=== PATIENT | male | born 1980 | race Caucasian/White ===

== ENCOUNTER → 2018-01-31 | Outpatient (CLI) | payer MEDICARE, OTHER ==
[~2018-01-31] MED LIST: GADOBENATE DIMEGLUMINE 1 ML IV ONE; IOPAMIDOL 300 MG/ML 15ML VIAL IT ONE
--- NOTE | 2018-01-31 15:26 | Diagnostic Imaging Report ---
PROCEDURE:FLUORO GUID ARTHRO NEEDLE PLMT COMPARISON:None. INDICATIONS:Right shoulder pain. TECHNIQUE:A joint injection was performed in the usual sterile manner after obtaining informed consent. FINDINGS: Consumer Relations Complaint Clerk images of the right shoulder were obtained. The right shoulder was prepped and draped in the usual sterile fashion. 1% lidocaine was infused into the subcutaneous tissues for local anesthesia. Utilizing direct fluoroscopic guidance, a 22 gauge spinal needle was advanced into the right glenohumeral joint. Contrast opacification of the glenohumeral joint space was confirmed with 5 cc Isovue-300. A mixture of gadolinium 0.1 mg and 10 cc of sterile saline was infused. Upon completion, the needle was removed. A sterile dressing was applied. The contrast was mobilized within the joint space utilizing passive range of motion. There no immediate complications. The patient tolerated the procedure well. The patient was transferred in stable unchanged condition to the MRI suite for further imaging with an MRI arthrogram. CONCLUSION: Successful right shoulder contrast injection utilizing fluoroscopic guidance for an MR arthrogram. Dictated by: Moisés Suazo M.D. on 01/31/2018 at 15:27 Electronically approved by: Moisés Suazo M.D. on 01/31/2018 at 15:27
--- NOTE | 2018-01-31 15:40 | Diagnostic Imaging Report ---
MRI of the right shoulder with contrast. History: Shoulder pain. Labral lesion. Pain worse with heavy lifting. Comparison: None Technique: Multiplanar multisequence MRI of the right shoulder after the administration of intra-articular gadolinium contrast material. Findings: Rotator cuff: There is mild rotator cuff tendinosis with mild articular sided fraying involving the anterior fibers of the supraspinatus and infraspinatus tendons at the humeral insertion site. No rotator cuff tear, muscle atrophy or retraction. Osseous acromion complex: There is a type II acromion with mild lateral downsloping. There is mild degenerative arthrosis at the acromioclavicular joint with undersurface spurring and narrowing of the supraspinatus tendon outlet. Glenohumeral joint: There is a nondisplaced superior labral tear extending from anterior to posterior. This is best seen on coronal series 4 image 11 through 15. The capsular structures are intact. The articular cartilage surfaces are intact. The humeral head is well-seated in the glenoid fossa. Gadolinium contrast material is seen filling the glenohumeral joint and extending into the subcoracoid space. Biceps tendon: There is intra-articular biceps tendinosis with fraying at the biceps anchor. Other findings: Negative for muscle denervation or osseous fracture. Impression: Mild rotator cuff tendinosis with mild articular sided fraying involving the anterior fibers of the supraspinatus and infraspinatus tendons at the humeral insertion site Nondisplaced superior labral tear extending from anterior to posterior Intra-articular biceps tendinosis with fraying at the biceps anchor. Signed by: Dr. Maykel Soto M.D. on 01/31/2018 3:36 PM
--- NOTE | 2018-01-31 15:43 | Diagnostic Imaging Report ---
Left knee MRI without contrast. History: Knee pain. Meniscus tear. Decreased range of motion. Pain not responding to conservative management. Comparison: None. Technique: Multiplanar multi-sequence MRI of the knee without contrast. Findings: Medial compartment: There is degeneration and free edge fraying of the medial meniscus. No meniscal tear, cartilage abnormality, or MCL tear. Lateral compartment: No meniscal tear or cartilage abnormality. The LCL complex is normal. Intercondylar notch: The ACL and PCL are intact. Patellofemoral compartment: No chondromalacia or patellar dislocation. Extensor mechanism: There is mild proximal patellar tendinosis. The quadriceps and patellar tendons are otherwise intact. Other findings: There is a joint effusion and synovitis. There is no acute fracture, subluxation or avascular necrosis. IMPRESSION: Degeneration and free edge fraying of the medial meniscus. No meniscal tear is seen. Mild proximal patellar tendinosis without tear or retraction. Signed by: Dr. Maykel Soto M.D. on 01/31/2018 3:39 PM
== END ==
LOC: DX 12:07
PROVIDERS: ATTEND Specialist
DX: S43.431A Superior glenoid labrum lesion of right shoulder, initial encounter (principal); S46.091A Other injury of muscle(s) and tendon(s) of the rotator cuff of right shoulder, initial encounter; S83.242A Other tear of medial meniscus, current injury, left knee, initial encounter
CPT/HCPCS: 23350; 73222; 73721; 77002; Q9967

== ENCOUNTER → 2018-02-23 | Day surgery (SDC) | payer MEDICARE, OTHER ==
[~2018-02-23] MED LIST changes: +BUPIVACAINE HCL 0.5% INJ 30 ML VIAL INJ ONE; +CEFAZOLIN SOD 2 GM/D5W 50ML 50 ML IV ONE; +DEXAMETHASONE SOD PHOS INJ 4 MG/ML VIAL ONE; +EPINEPHRINE HCL INJ 1 MG/ML AMP ONE; +FENTANYL CITRATE/PF 100MCG/2 ML INJ ONE; -GADOBENATE DIMEGLUMINE 1 ML IV ONE; -IOPAMIDOL 300 MG/ML 15ML VIAL IT ONE; +LIDOCAINE HCL 2% LOCAL INJ 5 ML SDV VIAL INJ ONE; +LORTAB PO; +METOCLOPRAMIDE HCL 10 MG/2ML VIAL ONE; +MIDAZOLAM HCL 2 MG/2 ML VIAL ONE; +ONDANSETRON HCL INJ 2 MG/ML VIAL ONE; +PROPOFOL IV EMULSION 10 MG/ML 20 ML VIAL ONE; +ROCURONIUM BROMIDE 10 MG/ML 5ML VIAL ONE; +SEVOFLURANE INHAL SOLN 250 ML PEN BTL ONE
--- OUTSIDE RECORDS SUMMARY | 2018-02-23 08:27 | XMS REPORT ---
Author Author [facility] Address Unknown Phone Unavailable Care Team Providers Care Refinery Operator Alkylation Name Role Phone PRICILA BROUSSARD Unavailable Unavailable Problems This patient has no known problems. Allergies, Adverse Reactions, Alerts This patient has no known allergies or adverse reactions. Medications This patient has no known medications. Results Test Description Test Time Test Comments Text Results Atomic Results Result Comments INJECTION ARTHROGRAM SHOULDER [place] [address] Patient Name: EULALIA BYRNES MR #: [id number] : 1980 Age/Sex: 37/M Req #: [id number] [facility] Physician: Ordered by: PRICILA BROUSSARD MD Report #: [id number] Location: DX Room/Bed: Procedure: [id number] IR/INJECTION ARTHROGRAM SHOULDER Exam Date: 01/31/18 Exam Time: 1328 REPORT STATUS: Signed PROCEDURE : FLUORO GUID ARTHRO NEEDLE PLMT COMPARISON: None. INDICATIONS: Right shoulder pain. TECHNIQUE: A joint injection was performed in the usual sterile manner after obtaining informed consent. FINDINGS: Movie Editor images of the right shoulder were obtained. The right shoulder was prepped and draped in the usual sterile fashion. 1% lidocaine was infused into the subcutaneous tissues for local anesthesia. Utilizing direct fluoroscopic guidance, a 22 gauge spinal needle was advanced into the right glenohumeral joint. Contrast opacification of the glenohumeral joint space was confirmed with 5 cc Isovue-300. A mixture of gadolinium 0.1 mg and 10 cc of sterile saline was infused. Upon completion, the needle was removed. A sterile dressing was applied. The contrast was mobilized within the joint space utilizing passive range of motion. There no immediate complications. The patient tolerated the procedure well. The patient was transferred in stable unchanged condition to the MRI suite for further imaging with an MRI arthrogram. CONCLUSION: Successful right shoulder contrast injection utilizing fluoroscopic guidance for an MR arthrogram. Dictated by: Jake Pitts M.D. on 01/31/2018 at 15:27 Electronically approved by: Jake Pitts M.D. on 01/31/2018 at 15:27 Dictated By: JAKE PITTS MD 26 Transcribed By: SHONDA on 01/31/181526 COPY TO: PRICILA BROUSSARD MD MRI SHOULDER RIGHT W [place] [address] Patient Name: EULALIA BYRNES MR #: [id number] : 1980 Age/Sex: 37/M Req #: [id number] Adm Physician: Ordered by: PRICILA BROUSSARD MD Report #: [id number] Location: Room/Bed: Procedure: [id number] MRI/MRI SHOULDER RIGHT W Exam Date: Exam Time: REPORT STATUS: Signed MRI of the right shoulder with contrast. History: Shoulder pain. Labral lesion. Pain worse with heavy lifting. Comparison: None Technique: Multiplanar multisequence MRI of the right shoulder after the administration of intra-articular gadolinium contrast material. Findings: Rotator cuff: There is mild rotator cuff tendinosis with mild articular sided fraying involving the anterior fibers of the supraspinatus and infraspinatus tendons at the humeral insertion site. No rotator cuff tear, muscle atrophy or retraction. Osseous acromion complex: There is a type II acromion with mild lateral downsloping. There is mild degenerative arthrosis at the acromioclavicular joint with undersurface spurring and narrowing of the supraspinatus tendon outlet. Glenohumeral joint: There is a nondisplaced superior labral tear extending from anterior to posterior. This is best seen on coronal series 4 image 11 through 15. The capsular structures are intact. The articular cartilage surfaces are intact. The humeral head is well-seated in the glenoid fossa. Gadolinium contrast material is seen filling the glenohumeral joint and extending into the subcoracoid space. Biceps tendon: There is intra- articular biceps tendinosis with fraying at the biceps anchor. Other findings: Negative for muscle denervation or osseous fracture. Impression: Mild rotator cuff tendinosis with mild articular sided fraying involving the anterior fibers of the supraspinatus and infraspinatus tendons at the humeral insertion site Nondisplaced superior labral tear extending from anterior to posterior Intra-articular biceps tendinosis with fraying at the biceps anchor. Signed by: Dr. Maykel Soto M.D. on 01/31/2018 3:36 PM Dictated By: MAYKEL SOTO MD, MD 153 Transcribed By: ASA on 01/31/18 1536 COPY TO: PRICILA BROUSSARD MD MRI KNEE LEFT [place] [address] Patient Name: EULALIA BYRNES MR #: [id number] : 1980 Age/Sex: 37/M Req # : [id number] Adm Physician: Ordered by: PRICILA BROUSSARD MD Report #: [id number] Location: DX Room/Bed: Procedure: [id number] 0007 MRI/MRI KNEE LEFT WO Exam Date: Exam Time: REPORT STATUS: Signed Left knee MRI without contrast. History: Knee pain. Meniscus tear. Decreased range of motion. Pain not responding to conservative management. Comparison: None. Technique: Multiplanar multi-sequence MRI of the knee without contrast. Findings: Medial compartment: There is degeneration and free edge fraying of the medial meniscus. No meniscal tear, cartilage abnormality, or MCL tear. Lateral compartment: No meniscal tear or cartilage abnormality. The LCL complex is normal. Intercondylar notch: The ACL and PCL are intact. Patellofemoral compartment: No chondromalacia or patellar dislocation. Extensor mechanism: There is mild proximal patellar tendinosis. The quadriceps and patellar tendons are otherwise intact. Other findings: There is a joint effusion and synovitis. There is no acute fracture, subluxation or avascular necrosis. IMPRESSION: Degeneration and free edge fraying of the medial meniscus. No meniscal tear is seen. Mild proximal patellar tendinosis without tear or retraction. Signed by: Dr. Maykel Soto M.D. on 01/31/2018 3:39 PM Dictated By: MAYKEL SOTO MD, MD 38 Transcribed By: ASA on 1538 COPY TO: PRICILA BROUSSARD MD FLURO GUIDE NEEDLE [facility]/[place] [address] Patient Name: EULALIA BYRNES MR #: [id number] : 1980 Age/Sex: 37/M Req #: [id number] Adm Physician: Ordered by: PRICILA BROUSSARD MD Report #: [id number] Location: DX Room/Bed: Procedure: [id number] DX/FLURO GUIDE NEEDLE PLMT/LOC DE Exam Date: Exam Time: REPORT STATUS: Signed PROCEDURE: FLUORO GUID ARTHRO NEEDLE PLMT COMPARISON: None. INDICATIONS: Right shoulder pain. TECHNIQUE: A joint injection was performed in the usual sterile manner after obtaining informed consent. FINDINGS: Movie Editor images of the right shoulder were obtained. The right shoulder was prepped and draped in the usual sterile fashion. 1% lidocaine was infused into the subcutaneous tissues for local anesthesia. Utilizing direct fluoroscopic guidance, a 22 gauge spinal needle was advanced into the right glenohumeral joint. Contrast opacification of the glenohumeral joint space was confirmed with 5 cc Isovue-300. A mixture of gadolinium 0.1 mg and 10 cc of sterile saline was infused. Upon completion, the needle was removed. A sterile dressing was applied. The contrast was mobilized within the joint space utilizing passive range of motion. There no immediate complications. The patient tolerated the procedure well. The patient was transferred in stable unchanged condition to the MRI suite for further imaging with an MRI arthrogram. CONCLUSION: Successful right shoulder contrast injection utilizing fluoroscopic guidance for an MR arthrogram. Dictated by: Jake Pitts M.D. on 01/31/2018 at 15:27 Electronically approved by: Jake Pitts M.D. on 01/31/2018 at 15:27 Dictated By: JAKE PITTS MD 1527 Transcribed By: SHONDA on 01/31/18 1527 COPY TO: PRICILA BROUSSARD MD
--- NOTE | 2018-02-23 13:57 | Operative Report ---
DATE OF PROCEDURE: February 23, 2018 PREOPERATIVE DIAGNOSIS: Right shoulder labral tear. POSTOPERATIVE DIAGNOSES: 1. Right shoulder labral tear. 2. Right shoulder synovitis. 3. Right shoulder partial rotator cuff tear. OPERATION PROCEDURE PERFORMED: Patient underwent: 1. Right shoulder examination under anesthesia. 2. Right shoulder arthroscopy. 3. Right shoulder arthroscopic debridement of synovitis. 4. Right shoulder arthroscopic debridement of a partial rotator cuff tear. 5. Right shoulder arthroscopic superior labral repair. DISPUTE COORDINATOR: Erendira Osborne. ANESTHESIA: General endotracheal intubation anesthesia as well as regional block. IV FLUIDS: As per the anesthesia record. BLOOD LOSS: Nominal. DESCRIPTION OF PROCEDURE: Mr. Light was taken to the operating room, placed in supine position on the operating table. Following the induction of general anesthesia and endotracheal intubation, the patient's operating room table was converted to a beach chair type position. Examination of the right upper extremity demonstrated no gross abnormalities. The patient had full passive range of motion of the shoulder joint without evidence of instability. The patient's upper extremity was prepped and draped in standard surgical fashion. Standard anterior and posterolateral portals were created without difficulty. Scope was placed within the shoulder joint atraumatically. Examination of glenohumeral articulation demonstrated no significant evidence of chondromalacia. There was diffuse synovitis throughout the shoulder joint. There were no loose bodies in the shoulder joint. There was a partial thickness rotator cuff tear comprising less than 50% of the insertion site into the greater tuberosity. An anterior portal was created through an outside-in technique. A probe was placed in the shoulder joint. Examination of the biceps tendon found that it was intact. There was fraying and tearing of the labrum along the superior aspect of the glenoid. There was an anterior labral foramen. An elevator was used to elevate the torn portion of the labrum from the superior aspect of the glenoid. A shaver was then used to debride the insertion site to a bleeding bony bed. Two anchors were then inserted into the superior rim of the glenoid. The sutures from those anchors were then woven about the labrum and labrum was tied firmly into its normal insertion site. A probe was placed within the shoulder joint and probing of the labrum demonstrated firm reattachment of the labrum to the glenoid. A shaver was then used to debride the synovitis. The rotator cuff tear was also debrided at this time. The shoulder was deflated of its sterile normal saline. The portal sites were closed. Sterile dressings were applied and the patient was provided a shoulder immobilizer, awakened and taken to post anesthesia care in stable condition. Job#: [id number]
== END | disposition home or self-care (01) ==
LOC: OR 08:25
PROVIDERS: ATTEND Specialist
DX: S43.431A Superior glenoid labrum lesion of right shoulder, initial encounter (principal); M75.111 Incomplete rotator cuff tear or rupture of right shoulder, not specified as traumatic; M65.811 Other synovitis and tenosynovitis, right shoulder; N20.0 Calculus of kidney; M22.2X2 Patellofemoral disorders, left knee; X58.XXXA Exposure to other specified factors, initial encounter; Z68.33 Body mass index [BMI] 33.0-33.9, adult
CPT/HCPCS: 29807; J0171; J1100; J2001; J2250; J2405; J2765